=== PATIENT | male | born 1955 | race Caucasian/White ===

== ENCOUNTER 2023-10-11 16:00 | Emergency (ER) | payer MEDICARE ==
[~2023-10-11] VITALS: Ht 182.9 cm; Wt 104.5 kg
[~2023-10-11 16:00] MED LIST: CRESTOR10 MG PO; HYDROCHLOROT12.5 M1 PO; LASIX 20 MG TAB20 MG PO; LASIX 40 MG TAB40 MG PO; METOPROLOL SUCC50 MG PO; SILDENAFIL20 MG PO; TAMSULOSIN0.4 MG PO; TOPROL XL25 M1 PO; XARELTO20 MG PO
[2023-10-11] MEDS ORDERED: KETOROLAC TROMETHAMINE 30 MG/ML SDV IM ONE (16:40)
[2023-10-11] MEDS ORDERED: CYCLOBENZAPRINE HCL 5 MG TAB PO ONE (16:40)
[2023-10-11] MEDS ORDERED: oxyCODONE 5MG/ ACETAMINOPHEN 325MG TAB PO ONE (16:40)
[2023-10-11 16:45] VITALS: BP 122/89
[2023-10-11 17:00] VITALS: BP 123/83
[2023-10-11 18:00] VITALS: BP 137/87
[2023-10-11] MEDS ORDERED: METHOCARBAMOL500 MG PO (18:26)
[2023-10-11] MEDS ORDERED: LORTAB 5/3255 MG PO (18:26)
[2023-10-11 19:00] VITALS: BP 140/87
[2023-10-11 19:04] VITALS: BP 140/87
== END 2023-10-11 19:12 | disposition home or self-care (01) ==
LOC: ED 16:00
DX: M25.552 Pain in left hip (principal); I10 Essential (primary) hypertension; I48.91 Unspecified atrial fibrillation; Z86.718 Personal history of other venous thrombosis and embolism; Z72.0 Tobacco use; Z96.642 Presence of left artificial hip joint; R93.7 Abnormal findings on diagnostic imaging of other parts of musculoskeletal system